=== PATIENT | female | born 1960 | race Caucasian/White ===

== ENCOUNTER 2019-09-28 08:36 | Day surgery (SDC) | payer BC ==
[~2019-09-28] VITALS: Ht 162.6 cm; Wt 67.1 kg
[~2019-09-28 08:36] MED LIST: SERT100 PO
--- NOTE | 2019-09-28 09:57 | NUR ---
09/28/19 0957 Lucretia Starr SIMETHICONE USED DURING PROCEDURE.
--- NOTE | 2019-09-28 10:35 | NUR ---
09/28/19 1035 Lucretia Starr PT TOLERATING PO INTAKE, TALKING & SMILING, AT BEDSIDE MAKING JOKES. PT STS ABD CRAMPING PAIN HAS DECREASED AND IS NOW 7/10. PT LAUGHING AND CONVERSING WITH SPOUSE, REPOSITIONING SELF IN BED. SPLINTING WITH WARM BLANKET ON ABD. PT STS EAGER TO GO HOME AND REST IN OWN BED.
== END 2019-09-28 10:49 | disposition home or self-care (01) ==
LOC: ORSCSDS 08:36
PROVIDERS: Surgery
PROC: 0DJD8ZZ Inspection of Lower Intestinal Tract, Via Natural or Artificial Opening Endoscopic (ICD-10-PCS; principal; 2019-09-28 10:00)
DX: Z12.11 Encounter for screening for malignant neoplasm of colon (principal); E78.00 Pure hypercholesterolemia, unspecified; Z87.891 Personal history of nicotine dependence; Z79.899 Other long term (current) drug therapy
CPT/HCPCS: J2704; J7120

== ENCOUNTER → 2025-03-07 | Outpatient (CLI) | payer BC ==
[2025-03-07 13:32] LABS: Campylobacter Sp Not Detected (NOT DETECT); Salmonella Sp Not Detected (NOT DETECT)
[2025-03-07 13:33] LABS: E. Coli O157 Not Detected (NOT DETECT); Enteroaggregative E. coli-EAEC Not Detected (NOT DETECT); Enteropathogenic E. coli-EPEC Not Detected (NOT DETECT); Enterotoxigenic E. coli-ETEC Not Detected (NOT DETECT); Shiga Toxin-prod E. coli-STEC Not Detected (NOT DETECT); Shigella/Enteroin E. coli-EIEC Not Detected (NOT DETECT); Vibrio Sp Not Detected (NOT DETECT)
== END ==
LOC: LAB 08:02 → LAB SHORT 08:02
PROVIDERS: Physician Assistant
DX: R19.7 Diarrhea, unspecified (principal)
CPT/HCPCS: 87507